=== PATIENT | male | born 1965 | race Native Hawaiian/Other Pacific Islander ===

== ENCOUNTER → 2019-05-23 06:44 | Outpatient (CLI) | payer OTHER | END | disposition home or self-care (01) | LOC: AMB 06:44 | DX: Z04.1 Encounter for examination and observation following transport accident (principal); S01.111A Laceration without foreign body of right eyelid and periocular area, initial encounter ==

== ENCOUNTER 2019-05-23 10:41 | Emergency (ER) | payer OTHER ==
[~2019-05-23] VITALS: Ht 180.3 cm; Wt 74.8 kg
[2019-05-23 11:06] VITALS: TEMP 97.7
[2019-05-23 11:37] LABS: PLATELET COUNT 215 K/uL (142-355)
[2019-05-23 11:53] LABS: PARTIAL THROMBOPLASTIN TIME 26.6 SECONDS (24.5-33.6)
[2019-05-23 12:33] VITALS: BP 126/85
== END 2019-05-23 12:33 | disposition home or self-care (01) ==
LOC: ED 10:41
PROVIDERS: Family Medicine
DX: S00.83XA Contusion of other part of head, initial encounter (principal); S16.1XXA Strain of muscle, fascia and tendon at neck level, initial encounter; V49.50XA Passenger injured in collision with unspecified motor vehicles in traffic accident, initial encounter
CPT/HCPCS: 36415; 80053; 85027; 85610; 85730; 90471; 90715; 99283

== ENCOUNTER 2019-05-28 19:55 | Emergency (ER) | payer OTHER ==
[~2019-05-28] VITALS: Ht 180.3 cm; Wt 74.8 kg
[2019-05-28 20:05] VITALS: TEMP 98.1
[2019-05-28 21:22] LABS: PLATELET COUNT 175 K/uL (142-355)
[2019-05-28 21:29] LABS: POTASSIUM 3.7 mmol/L (3.6-5.2)
[2019-05-28 22:24] VITALS: BP 112/80
== END 2019-05-28 22:24 | disposition home or self-care (01) ==
LOC: ED 19:55
PROVIDERS: Emergency Medicine
DX: S83.91XA Sprain of unspecified site of right knee, initial encounter (principal)
CPT/HCPCS: 36415; 80053; 85027; 85379; 99283

== ENCOUNTER 2021-09-08 19:16 | Emergency (ER) | payer OTHER ==
[~2021-09-08] VITALS: Ht 180.3 cm; Wt 74.8 kg
[2021-09-08 20:00] LABS: PLATELET COUNT 219 K/uL (142-355)
[2021-09-08 20:04] LABS: POTASSIUM 4.1 mmol/L (3.6-5.2)
[2021-09-08 20:13] LABS: PARTIAL THROMBOPLASTIN TIME 26.3 SECONDS (24.5-33.6)
[2021-09-08 21:40] VITALS: BP 111/62; TEMP 97.9
== END 2021-09-08 21:40 | disposition short-term general hospital (02) ==
LOC: ED 19:16
PROVIDERS: Hospitalist
DX: R07.89 Other chest pain (principal); I20.0 Unstable angina; I10 Essential (primary) hypertension; I47.2 Ventricular tachycardia; Z11.52 Encounter for screening for COVID-19; F17.210 Nicotine dependence, cigarettes, uncomplicated
CPT/HCPCS: 36415; 80053; 80307; 81000; 82550; 83880; 84484; 85027; 85610; 85730; 87635; 93005; 96360; 96375; 96376; 99284; J0282; J1940; J2405; U0003

== ENCOUNTER 2021-11-08 12:55 | Emergency (ER) | payer OTHER ==
[~2021-11-08] VITALS: Ht 180.3 cm; Wt 74.8 kg
[2021-11-08 13:26] LABS: PLATELET COUNT 265 K/uL (142-355)
[2021-11-08 14:08] LABS: POTASSIUM 4.2 mmol/L (3.6-5.2)
[2021-11-08] MEDS ORDERED: LEVOFLOXACIN500 MG PO (16:04)
[2021-11-08] MEDS ORDERED: PRED20TA27 PO (16:04)
[2021-11-08 16:15] VITALS: BP 112/69; TEMP 98.1
== END 2021-11-08 16:15 | disposition home or self-care (01) ==
LOC: ED 12:55
PROVIDERS: Emergency Medicine
DX: F19.10 Other psychoactive substance abuse, uncomplicated (principal); J44.1 Chronic obstructive pulmonary disease with (acute) exacerbation; E86.0 Dehydration; F17.210 Nicotine dependence, cigarettes, uncomplicated
CPT/HCPCS: 36415; 80053; 80307; 81000; 84484; 85027; 85610; 93005; 94664; 96360; 96374; 99284; J2930